=== PATIENT | female | born 1960 | race Hispanic/Latino ===

== ENCOUNTER 2018-05-03 07:23 | Day surgery (SDC) | payer OTHER ==
[~2018-05-03] VITALS: Ht 165.1 cm; Wt 77.2 kg
[~2018-05-03 07:23] MED LIST: ALEN70TA47 PO; ATOR10TA69 PO; CALC-910 PO; DOCU-272 PO; FENO150C4 PO; FEXO1TAB8 PO; LEVO75TA10 PO; MECL-129 PO; MELO-108 PO; OMEP40CA37 PO; SODIUM CHLORIDE 0.9% 1000ML 1,000 ML IV ONE; VITA150T PO; VITA400C19 PO; WHEA1POW2 PO; [UNRECOGNIZED DRUG - OTHER] PO
[2018-05-03 08:07] VITALS: BP 133/65
== END 2018-05-03 09:55 | disposition home or self-care (01) ==
LOC: DAH 07:23 → ENDO 07:23
PROVIDERS: ATTEND Internal Medicine Gastroenterology
DX: K29.50 Unspecified chronic gastritis without bleeding (principal); K22.70 Barrett's esophagus without dysplasia; E03.9 Hypothyroidism, unspecified; G43.909 Migraine, unspecified, not intractable, without status migrainosus; E78.5 Hyperlipidemia, unspecified; F41.9 Anxiety disorder, unspecified; F32.9 Major depressive disorder, single episode, unspecified; M19.90 Unspecified osteoarthritis, unspecified site; Z68.29 Body mass index [BMI] 29.0-29.9, adult; Z98.890 Other specified postprocedural states; Z79.899 Other long term (current) drug therapy; K21.0 Gastro-esophageal reflux disease with esophagitis
CPT/HCPCS: 43239; 88305; 88312; A4606; J7030

== ENCOUNTER → 2020-10-31 | Outpatient (CLI) | payer OTHER ==
[~2020-10-31] MED LIST changes: -ALEN70TA47 PO; +ALEN70TA69 PO; -MELO-108 PO; +OMEP40CA13 PO; -OMEP40CA37 PO; -SODIUM CHLORIDE 0.9% 1000ML 1,000 ML IV ONE
== END | disposition home or self-care (01) ==
LOC: SHCH 15:16
PROVIDERS: ATTEND Internal Medicine Cardiovascular Disease
DX: R55 Syncope and collapse (principal)
CPT/HCPCS: 93306; 93356

== ENCOUNTER → 2023-01-04 | Outpatient (CLI) | payer OTHER ==
[~2023-01-04] MED LIST changes: -ALEN70TA69 PO; +ALEN70TA80 PO; -DOCU-272 PO; +DOCU-280 PO; -OMEP40CA13 PO; +OMEP40CA21 PO; +VITA-395 PO; -VITA400C19 PO
== END | disposition home or self-care (01) ==
LOC: RAH 13:07
PROVIDERS: ATTEND Internal Medicine Cardiovascular Disease
DX: Z13.6 Encounter for screening for cardiovascular disorders (principal)
CPT/HCPCS: 75571

== ENCOUNTER → 2023-01-11 | Outpatient (CLI) | payer MEDICARE ==
[~2023-01-11] MED LIST changes: +REGADENOSON 0.4 MG/5 ML PF SYG IVP SCH
== END | disposition home or self-care (01) ==
LOC: SHCH 08:27
PROVIDERS: ATTEND Internal Medicine Cardiovascular Disease
DX: R07.89 Other chest pain (principal); R93.1 Abnormal findings on diagnostic imaging of heart and coronary circulation; Z79.899 Other long term (current) drug therapy
CPT/HCPCS: 78452; 96374; 93017; J2785; A9500 ×2